=== PATIENT | male | born 1985 | race Caucasian/White ===

== ENCOUNTER 2017-12-05 22:15 | Emergency (ER) | payer SELFPAY ==
[~2017-12-05] VITALS: Ht 185.4 cm; Wt 100.0 kg
[~2017-12-05 22:15] MED LIST: LORTA5 PO
[2017-12-05 22:20] VITALS: BP 129/57; PULSE 100; RESP 20; TEMP 98.9; O2SAT 99
[2017-12-05] MEDS ORDERED: ZOFR4TAB PO (23:19)
[2017-12-05] MEDS ORDERED: OSEL75 PO (23:19)
--- NOTE | 2017-12-05 23:19 | PD ---
HPI Chief Complaint: Cold / Flu Symptoms Time Seen by Provider: 22:47 Travel History International Travel<30 days: No Contact w/Intl Traveler<30days: No Traveled to known affect area: No History of Present Illness HPI Patient is a 32-year-old male with a history of 12-24 hours of fevers and body aches chills cough and congestion. Did not take his temperature, no nausea no vomiting no diarrhea no abdominal pain no chest pain. He did not get a flu shot this year. States symptoms are moderate, rapidly worsening, associated signs symptoms as above, context as above. PFSH Past Medical History Medical History: Denies Significant Hx Diminished Hearing: No Tetanus Vaccination: > 5 Years Influenza Vaccination: No Past Surgical History Surgical History: No Previous Surgery Abdominal Aneurysm Repair: Yes Social History Alcohol Use: Yes (rare) Tobacco Use: Yes (3-5 cigs every other day ) Substance Use: No Allergies-Medications (Allergen,Severity, Reaction): Coded Allergies: No Known Allergies (Unverified Adverse Reaction, Unknown, 12/05/17) Reported Meds & Prescriptions Reported Meds & Active Scripts Active Zofran (Ondansetron HCl) 4 Mg Tab 4 Mg PO Q6HR PRN Tamiflu (Oseltamivir Phosphate) 75 Mg Cap 75 Mg PO BID 5 Days Review of Systems Except as stated in HPI: all other systems reviewed are Neg Physical Exam Narrative GENERAL: Well-developed well-nourished no obvious distress SKIN: Focused skin assessment warm/dry. HEAD: Atraumatic. Normocephalic. EYES: Pupils equal and round. No scleral icterus. No injection or drainage. ENT: No nasal bleeding or discharge. Mucous membranes pink and moist. TMs clear bilaterally, oropharynx mildly erythematous without any cobblestoning nor edema, uvula midline. NECK: Trachea midline. No JVD. CARDIOVASCULAR: Regular rate and rhythm. No murmur appreciated. RESPIRATORY: No accessory muscle use. Clear to auscultation. Breath sounds equal bilaterally. GASTROINTESTINAL: Abdomen soft, non-tender, nondistended. Hepatic and splenic margins not palpable. MUSCULOSKELETAL: No obvious deformities. No clubbing. No cyanosis. No edema. NEUROLOGICAL: Awake and alert. No obvious cranial nerve deficits. Motor grossly within normal limits. Normal speech. PSYCHIATRIC: Appropriate mood and affect; insight and judgment normal. Data Data Last Documented VS Vital Signs Date Time Temp Pulse Resp B/P (MAP) Pulse Ox O2 Delivery O2 Flow Rate FiO2 12/05/17 23:37 88 18 122/60 (80) 99 12/05/17 22:20 98.9 Orders Orders Ed Discharge Order (12/05/17 23:19) MDM Medical Decision Making Medical Screen Exam Complete: Yes Emergency Medical Condition: Yes Differential Diagnosis Myalgias, URI, influenza Narrative Course Patient fairly classic for flu with myalgias chills body aches cough and congestion. Discussed risks benefits, occasions and alternatives for Tamiflu, he verbalized understanding and agreement for trial. Otherwise he appears well , no indication further workup. He stable for discharge. Diagnosis Primary Impression: Flu-like symptoms Med/Other Pt SpecificInfo: Prescription(s) given Scripts Ondansetron (Zofran) 4 Mg Tab 4 MG PO Q6HR Y for NAUSEA OR VOMITING, #20 TAB 0 Refills Prov: Narciso Choudhary MD 12/05/17 Oseltamivir (Tamiflu) 75 Mg Cap 75 MG PO BID for Mgmt Viral Infection for 5 Days, #10 CAP 0 Refills Prov: Narciso Choudhary MD 12/05/17 Disposition: 01 DISCHARGE HOME Condition: Stable Narciso Choudhary MD Dec 05, 2017 23:19
[2017-12-05 23:37] VITALS: BP 122/60
== END 2017-12-05 23:38 | disposition home or self-care (01) ==
LOC: PHEFT 22:15
DX: J11.1 Influenza due to unidentified influenza virus with other respiratory manifestations (principal); F17.210 Nicotine dependence, cigarettes, uncomplicated
CPT/HCPCS: 99284